=== PATIENT | male | born 1940 | race Caucasian/White ===

== ENCOUNTER 2017-10-04 08:27 | Emergency (ER) | payer MEDICARE, MEDICAID ==
[~2017-10-04] VITALS: Ht 12.7 cm; Wt 83.9 kg
[~2017-10-04 08:27] MED LIST: CLINDAMYCIN HC300 MG PO; TRAMADOL HCL50 MG PO
== END 2017-10-04 09:07 | disposition left against medical advice (07) ==
LOC: ED 08:27
DX: R07.89 Other chest pain (principal); R00.1 Bradycardia, unspecified; Z98.890 Other specified postprocedural states; Z95.5 Presence of coronary angioplasty implant and graft

== ENCOUNTER 2017-10-18 11:05 | Emergency (ER) | payer MEDICARE, MEDICAID ==
[~2017-10-18] VITALS: Wt 104.3 kg
== END 2017-10-18 14:50 | disposition expired ==
LOC: ED 11:05
DX: I46.9 Cardiac arrest, cause unspecified (principal); Z98.890 Other specified postprocedural states; Z95.5 Presence of coronary angioplasty implant and graft